=== PATIENT | male | born 2000 | race Caucasian/White ===

== ENCOUNTER 2021-07-18 20:50 | Emergency (ER) | payer MEDICAID, SELFPAY ==
[2021-07-18 20:52] VITALS: BP 149/90; PULSE 103; RESP 18; TEMP 36.6; O2SAT 99; BMI 29.2
--- NOTE | 2021-07-18 21:20 | EX.ED.SAOD ---
HPI History of Present Illness Chief Complaint: Substance Abuse Informant: patient Onset/Context/Timing Onset: Month(s) Context: Gradual Onset Timing: Continuous Current Severity: Mild Maximum Severity: Mild Associated Symptoms Associated Symptoms: Positive for palpatations Narrative Narrative: 21-year-old male who has a history of alcohol abuse. Has been drinking heavily for the last 3 months. He had a grandfather that had alcoholism. Denies drugs. States that he drinks about 2 bottles of wine a day. Yesterday he drank only 1 bottle trying to stop but now he is having withdrawal symptoms. And is drank nothing today. He adamantly does not want to be admitted to the hospital. Prior similar symptoms: No Recent Illness/Hospitalization: No PFSH PFSH Home Medications chlordiazepoxide HCl 50 mg PO Q6H PRN #20 cap 07/18/21 [Rx Last Taken Unknown] Allergy/AdvReac Type Severity Reaction Status Date / Time No Known Allergies Allergy Verified 07/18/21 20:54 Social History Smoking Status: Never smoker ROS ROS ED ROS Narrative Withdrawal symptoms such as tachycardia. Review of Systems ROS Unobtainable: Denies due to encephalopathy Constitutional Constitutional ED: Denies fever(s) Eyes Eyes: Denies change in vision ENT ENT ED: Denies ear pain Cardiovascular Cardiovascular: Denies chest pain Respiratory/Chest Respiratory/Chest: Denies cough or dyspnea Gastrointestinal Gastrointestinal: Denies abdominal pain, diarrhea, nausea or vomiting Genitourinary Genitourinary ED: Denies dysuria Musculoskeletal Musculoskeletal: Denies myalgias Integumentary Denies rash Neurologic Neurologic: Denies headache(s) Psychiatric Psychiatric: Denies depression Endocrine Endocrinology: Denies polyuria Hematologic/Lymphatic Hematologic/Lymphatic: Denies easy bruising Allergic/Immunologic Allergic/Immunologic ED: Denies urticaria EXAM Physical Exam Narrative Exam Narrative: Well-appearing 21-year-old no acute distress. Vital signs stable he is afebrile. Blood pressure 149/90. Heart rate 103. Pulse ox 99% on room air. HEENT exam unremarkable. Moist his membranes. Neck nontender. Lungs clear to auscultation bilaterally. Heart regular rhythm rate about 100-1 03. No murmur. Abdomen soft nontender normal bowel sounds no peritoneal signs. Patient moving all 4 extremities. No edema. Neurologically is awake and alert with no focal motor deficits. Const Vital Signs: 07/18/21 20:52 Temperature 97.8 F Temperature Source Temporal Pulse Rate 103 H Respiratory Rate 18 Blood Pressure 149/90 H Blood Pressure Mean 109 Pulse Ox 99 Oxygen Delivery Method Room Air Positive well nourished and well developed; Negative for obese, cachectic, contractures or unkempt General Appearance ED: well developed and NAD; Negative for unkempt, cachectic, contractures or pallor Nutritional Appearance: Negative for cachectic or obese HEENT Reports moist mucous membranes Negative for atraumatic or trauma Eyes PERRL and EOMs intact bilaterally Neck no lymphadenopathy, supple and no JVD Lymph Lymphatic: no lymphadenopathy noted Chest Wall inspection of chest normal and palpation of chest normal Resp normal respiratory effort and clear to auscultation bilaterally Auscultation: Negative for rales, rhonchi or wheezes Cardio regular rhythm, S1 normal heart sound, S2 normal heart sound and no murmurs; Negative for regular rate Rate: tachycardic GI soft to palpation, non-tender, non-distended and no masses Inspection: Negative for abdominal distention Palpation: Negative for tender, guarding or rigid Back/Spine no CVA tenderness General Back: Negative for CVA tenderness Cervical Spine: Negative for cervical spine tenderness Thoracic Spine / Upper Back: Negative for thoracic spinal tenderness Extremity General Extremety ED: Negative for edema or tenderness General Extremity: Negative for edema Neuro oriented x3 and CN's II-XII intact bilaterally Sensorium / Orientation: alert, oriented to person, oriented to place and oriented to time; Negative for confused, lethargic or stuporous Motor Exam: strength 5/5 throughout Psych mental status grossly normal and thought process normal Appearance: Negative for unkempt Attitude: No belligerent, No agitated, No aggressive and No hostile Mood & Affect: Negative for depressed or tearful Skin General Skin Exam: Negative for jaundice or pallor Lesions: no lesions Rashes: no rashes MDM MDM MDM Narrative Medical decision making narrative: 21-year-old male requesting help with his withdrawal symptoms but does not want inpatient detox. Patient be discharged home with Librium. Our secondary social studies teacher will discuss with him and help him get set up with [facility] for outpatient detox of alcohol. He knows to return if worse. Discharge Plan Triage Chief Complaint: Substance Abuse ED Provider: Blaine Acosta Dx/Rx/DC Orders Clinical Impression: Alcohol abuse Instructions: ED Alcohol Abuse Prescriptions: New chlordiazepoxide HCl 25 mg capsule 50 mg PO Q6H PRN (Reason: alcohol withdrawal) Qty: 20 RF: 0 Primary Care Provider: NOT,DEFINED Referrals: NOT,DEFINED [Primary Care Provider] - [facility] [STAFF PHYSICIAN] - 1 Day Activity Restrictions/Additional Instructions: Plenty of fluids and rest. Follow-up with [facility] tomorrow morning. Return to the emergency department if you are feeling worse. You can get very severe withdrawal symptoms with detoxing off of alcohol. We can even have seizures. You need to be very careful trying to do this at home. If you feel worse return for inpatient treatment. Disposition Disposition: Home, Self Care
--- NOTE | 2021-07-18 22:49 | CM.ED ---
VILMA Note VILMA met with patient and his girlfriend. [facility] and the treatment navigator. Patient said that he had to do outpatient because of his job and needing money to pay rent next week. SW discussed the RAMP program and patient said that he did not think he could go a long period of time without seeing his significant other. Patient said that he has researched on line the effects alcohol detox has on the body. SW encouraged patient to consider the RAMP program. VILMA provided resources to patient. VILMA remains available. Plan: [facility] resources provided Marie GREGG
== END 2021-07-18 23:12 | disposition home or self-care (01) ==
LOC: ED 21:38
PROVIDERS: Emergency Provider Emergency Medicine; Visit Provider Emergency Medicine
DX: F10.10 Alcohol abuse, uncomplicated (principal)
CPT/HCPCS: 99281; 99282

== ENCOUNTER 2021-08-03 15:44 | Emergency (ER) | payer OTHER, MEDICAID, SELFPAY ==
[2021-08-03 15:45] VITALS: BP 144/91; PULSE 87; RESP 18; TEMP 36.7; O2SAT 100; BMI 28.5
--- NOTE | 2021-08-03 16:01 | EDS_ITS ---
HPI History of Present Illness Chief Complaint: Laceration Narrative Narrative: 21-year-old male presenting with laceration to the right lateral eyebrow. Patient states he hit his head on a truck while at work. This was on the bumper. He states it was a clean surface area. He believes his tetanus is up-to-date. He denies he denies headache. He denies LOC. Denies dizziness or lightheadedness. He states that mildly hurts where his laceration is. He states since this happened at work he was sent in for evaluation. PFSH PFS Medical History no medical history Home Medications NK 08/03/21 [History Last Taken Unknown] Allergy/AdvReac Type Severity Reaction Status Date / Time No Known Allergies Allergy Verified 08/03/21 16:18 Surgical History no surgical history Social History Smoking Status: Never smoker ROS ROS ED Constitutional Constitutional ED: Denies chills or fever(s) Eyes Eyes: Denies blurry vision or change in vision ENT ENT ED: Denies rhinorrhea or sore throat Cardiovascular Cardiovascular: Denies chest pain or palpitations Respiratory/Chest Respiratory/Chest: Denies cough or dyspnea Gastrointestinal Gastrointestinal: Denies abdominal pain, nausea or vomiting Genitourinary Genitourinary ED: Denies dysuria or hematuria Musculoskeletal Musculoskeletal: Denies arthralgias, myalgias or neck pain Integumentary Reports other EXAM Physical Exam Const Vital Signs: 08/03/21 15:45 08/03/21 18:00 Temperature 98.0 F Temperature Source Temporal Pulse Rate 87 82 Respiratory Rate 18 17 Blood Pressure 144/91 H Blood Pressure Mean 108 Pulse Ox 100 100 Oxygen Delivery Method Room Air Positive well nourished General Appearance ED: NAD HENICHOLE HENICHOLE Narrative: 1 to 5 cm laceration right supraorbital ridge. No active bleeding. Minimally tender to palpation peer Eyes PERRL and EOMs intact bilaterally Neck full ROM General: Negative for tenderness Resp normal respiratory effort and clear to auscultation bilaterally Cardio regular rhythm Rate: regular rate Neuro oriented x3, CN's II-XII intact bilaterally, moves all extremities, no focal motor deficits and no sensory deficits noted Sensorium / Orientation: alert Psych mental status grossly normal Skin Skin Narrative: As described above PROC Procedures Lacerations Facial lacerations: Length: 0.59 in Depth: Skin Shape: Linear Prep: Sterile Conditions and Chlorhexadine Laceration repair: Irrigated and Lidocaine with epi Irrigated (ml): 250 Number of Sutures/El: 2 Suture Information: Ethilon and 6-0 MDM MDM MDM Narrative Medical decision making narrative: Patient's wound was cleaned and irrigated. Two 6-0 Ethilon sutures were used to approximate the wound margins. Please see procedure note. Patient tolerated this well. He is given instructions on wound care and monitor for signs of infection. He is counseled to follow-up in 5 to 7 days for suture removal. Patient will follow up with the [facility] for suture removal. Impression: 1. 1.5 cm facial laceration Lab Data Labs: Laboratory Results - last 24 hr 08/03/21 16:55 POC Glucose 74 Discharge Plan Triage Chief Complaint: Laceration ED Provider: Fransico Lentz Dx/Rx/DC Orders Instructions: ED Laceration Scalp Stitches or [place] Prescriptions: No Action NK RF: 0 Primary Care Provider: Care Physician,No Primary Referrals: Care Physician,No Primary [Primary Care Provider] - [facility] [NON-STAFF] - (5 days) Disposition Disposition: Home, Self Care Discharge Date/Time: 08/03/21 18:01
[2021-08-03 17:06] LABS: Bedside Glucose 74 mg/dL (70-110)
[2021-08-03] MEDS: Lidocaine 2% /Epi 1:100 (20ml) 20 ML VIAL OPERA.SITE (17:24)
[2021-08-03 18:00] VITALS: PULSE 82; RESP 17; O2SAT 100
== END 2021-08-03 18:01 | disposition home or self-care (01) ==
PROVIDERS: Emergency Provider Student in an Organized Health Care Education/Training Program; Visit Provider Student in an Organized Health Care Education/Training Program
DX: S01.111A Laceration without foreign body of right eyelid and periocular area, initial encounter (principal); R82.998 Other abnormal findings in urine; R63.1 Polydipsia; X58.XXXA Exposure to other specified factors, initial encounter
CPT/HCPCS: 12011; 81001; 82962; 87086; 87088; 99282; 99283

== ENCOUNTER 2021-08-03 16:17 | Emergency (ER) | payer MEDICAID, SELFPAY ==
[2021-08-03 16:19] VITALS: BP 144/91; PULSE 87; RESP 18; TEMP 36.7; O2SAT 100; BMI 28.5
--- NOTE | 2021-08-03 16:20 | EDS_ITS ---
HPI History of Present Illness Chief Complaint: Complaint Narrative Narrative: 21-year-old male presenting initially for a laceration ER for Worker's Comp., but wanted to be reevaluated for dark urine which has had since he quit drinking couple weeks ago. Otherwise he feels well. He is not had nausea or vomiting. He denies abdominal pain. He has no history of STD. He is concerned for STDs. PFSH PFSH Medical History no medical history Home Medications NK 08/03/21 [History Last Taken Unknown] Allergy/AdvReac Type Severity Reaction Status Date / Time No Known Allergies Allergy Verified 08/03/21 16:18 Surgical History no surgical history Social History Smoking Status: Never smoker ROS ROS ED Constitutional Constitutional ED: Denies chills or fever(s) Eyes Eyes: Denies blurry vision or change in vision ENT ENT ED: Denies rhinorrhea or sore throat Cardiovascular Cardiovascular: Denies chest pain or palpitations Respiratory/Chest Respiratory/Chest: Denies cough or dyspnea Gastrointestinal Gastrointestinal: Denies abdominal pain or nausea Genitourinary Genitourinary ED: Denies dysuria or hematuria Musculoskeletal Musculoskeletal: Denies arthralgias, myalgias or neck pain Integumentary Reports other Details: Laceration repaired Neurologic Neurologic: Denies headache(s) or weakness Psychiatric Psychiatric: Denies anxiety or depression EXAM Physical Exam Const Vital Signs: 08/03/21 16:19 08/03/21 18:02 Temperature 98.0 F Temperature Source Temporal Pulse Rate 87 82 Respiratory Rate 18 17 Blood Pressure 144/91 H Blood Pressure Mean 108 Pulse Ox 100 100 Oxygen Delivery Method Room Air Positive well nourished General Appearance ED: NAD HEENT HEENT Narrative: 1.5 cm laceration to the right eyebrow. normocephalic Eyes PERRL and EOMs intact bilaterally Resp normal respiratory effort and clear to auscultation bilaterally Cardio regular rate and regular rhythm GI non-tender and non-distended Palpation: soft Neuro oriented x3, CN's II-XII intact bilaterally, moves all extremities, no focal motor deficits and no sensory deficits noted Sensorium / Orientation: alert Psych mental status grossly normal Skin Skin Narrative: As document above MDM MDM MDM Narrative Medical decision making narrative: Patient requests a urinalysis due to urinary symptoms which she describes mostly as foul-smelling. Urinalysis is negative for infection but does show 5 ketones. Patient states that he is excessively thirsty lately and I did check a bedside blood sugar which was in the 70s. Given his negative work-up I feel he can be discharged home. He is counseled to follow-up with his PCP for further care. He is given return precautions. Impression: 1. Foul-smelling urine 2. Polydipsia Lab Data Labs: Laboratory Results - last 24 hr 08/03/21 16:43 Urine Color Yellow Urine Clarity Clear Urine pH 6.5 Ur Specific [place] 1.010 Urine Protein Negative Urine Glucose (UA) Normal Urine Ketones 5 H Urine Occult Blood Negative Urine Nitrite Negative Urine Bilirubin Negative Urine Urobilinogen Normal Ur Leukocyte Esterase Negative Urine RBC 0-5 SEEN Urine WBC 0 SEEN Ur Squamous Epith Cells 0-5 SEEN Urine Bacteria 0 SEEN Urine Mucus 0 SEEN Discharge Plan Triage Chief Complaint: Complaint ED Provider: Fransico Lentz Dx/Rx/DC Orders Prescriptions: No Action NK RF: 0 Primary Care Provider: Care Physician,No Primary Referrals: Care Physician,No Primary [Primary Care Provider] - Disposition Disposition: Home, Self Care Discharge Date/Time: 08/03/21 18:03
[2021-08-03 16:47] LABS: Bacteria 0 SEEN /hpf (None Seen); Mucous, Urine 0 SEEN /hpf (<or=2+); White Blood Cells 0 SEEN /hpf (0-5)
[2021-08-03 16:51] LABS: Color, Urine Yellow (Yellow); Glucose, Dipstick Normal (Normal); Ketone-Dipstick 5 mg/dl (Negative); Leukocyte Esterase-Dipstick Negative /ul (Negative); Nitrite-Dipstick Negative (Negative); Occult Blood-Urine Negative /ul (Negative); Protein-Dipstick Negative (Negative); Urine Bilirubin Dipstick Negative (Negative); Urine Clarity Clear (Clear); Urine Urobilinogen Normal (Normal); Urine pH 6.5 (5.0 - 8.0)
[2021-08-03 17:03] LABS: Red Blood Cells-Urine 0-5 SEEN /hpf (0-5); Squamous Epithelial Cells - UA 0-5 SEEN /hpf (0-5)
[2021-08-03 18:02] VITALS: PULSE 82; RESP 17; O2SAT 100
== END 2021-08-03 18:03 | disposition home or self-care (01) ==
LOC: ED 16:32
PROVIDERS: Emergency Provider Student in an Organized Health Care Education/Training Program; Visit Provider Student in an Organized Health Care Education/Training Program
DX: R82.998 Other abnormal findings in urine (principal); R63.1 Polydipsia
CPT/HCPCS: 99282; 81001; 87088; 87086

== ENCOUNTER 2021-08-04 19:02 | Emergency (ER) | payer MEDICAID, SELFPAY ==
[2021-08-04 19:03] VITALS: BP 132/76; PULSE 77; RESP 16; TEMP 36.1; O2SAT 99; BMI 31.1
--- NOTE | 2021-08-04 19:19 | CT_ITS ---
STUDY: CT BRAIN WITHOUT CONTRAST REASON FOR EXAM: Male, 21 years old. HeadacheHEAD INJURY YESTERDAY, HIT HEAD ON METAL PLATE, TODAY DIZZINESS, NAUSEA, VISION CHANGES, STITCHES ABOVE RIGHT EYEBROW RADIATION DOSAGE (If Supplied By Facility): CTDIvol = ( 44.99 ) mGy, DLP = ( 812.98 ) mGycm TECHNIQUE: Transaxial CT imaging of the brain was performed without administration of intravenous contrast material. Individualized dose optimization techniques were used for this CT. COMPARISON: No relevant priors. FINDINGS: Brain parenchyma is without focal lesions, mass effect, acute intracranial hemorrhage, extra parenchymal fluid collections, hydrocephalus or herniation. The skull is intact. CT/Brain/Head without Contrast IMPRESSION: 1. Normal CT brain. Electronically Signed: Dakotah Ames MD at 19:55 EST ,
--- NOTE | 2021-08-04 19:19 | EKG12_ITS ---
Test Reason : HEAD INJ Blood Pressure : / mmHG Vent. Rate : 071 BPM Atrial Rate : 071 BPM P-R Int : 148 ms QRS Dur : 088 ms QT Int : 362 ms P-R-T Axes : 047 035 021 degrees QTc Int : 393 ms Normal sinus rhythm Normal ECG Confirmed by SUMEET ROSA MD ([id number]), order editor ROSA M PHILIPPE ([id number]) on 08/05/2021 12:26:07 PM Referred By: BERHANE Confirmed By:SUMEET ROSA MD
[2021-08-04] MEDS: Ondansetron 4 MG/2 ML Vial IV (19:32)
--- NOTE | 2021-08-04 19:40 | RAD_ITS ---
STUDY: X-RAY CHEST REASON FOR EXAM: Male, 21 years old. Dizziness TECHNIQUE: Frontal view COMPARISON: None. FINDINGS: The lungs are clear and expanded. There is no demonstrated pleural abnormality. Normal size heart. Normal mediastinum and ascencion. Normal visualized pulmonary arteries. Normal visualized aortic arch and descending thoracic aorta. Normal visualized thoracic spine. Normal visualized ribs, clavicles, and shoulders. There is no demonstrated abnormality of the visualized soft tissue structures of the upper abdomen. RAD/Chest 1 View (Portable) IMPRESSION: Normal x-ray examination of the chest. Electronically Signed: Octaviano Gutiérrez DO at 21:26 EST Reading Location ID and State: [facility] / [place] Tel [phone], Service support ,
[2021-08-04 19:50] LABS: Absolute Lymphocyte Count 2.15 X10^3/uL (0.83-4.51); Absolute Neutrophil Count 3.3 X10^3/uL (2.0-7.7); Basophil# 0.07 X10^3/uL; Basophil% 1.1 % (0-1); Eosinophils% 3.2 % (0-5); Hematocrit 47.1 % (40-54); Hemoglobin 16.7 g/dL (13.0-16.5); Lymphocyte # 2.15 X10^3/ul (0.83-4.51); Lymphocyte % 34.8 % (19-41); Mean Corp Hgb Conc 35.5 g/dL (32-36); Mean Corpuscular Hgb 31.2 pg (27.0-32.0); Mean Platelet Vol. 9.1 fl (6.2-12.0); Monocyte# 0.49 X10^3/uL; Monocyte% 7.9 % (0-10); NRBC Flagged by Analyzer 0 % (0-5); Neutrophil # 3.26 X10^3/uL (2.7-7.7); Neutrophil % 52.8 % (47-70); Platelet Count 365 K/mm3 (150-450); RBC Distribution Width CV 11.4 % (11.6-14.6); RBC Distribution Width SD 36.5 fl (35.1-43.9); Red Blood Count 5.35 M/mm3 (4.6-6.2); White Blood Count 6.2 K/mm3 (4.4-11.0)
--- NOTE | 2021-08-04 19:55 | EDS_ITS ---
HPI History of Present Illness Chief Complaint: Head Injury Narrative Narrative: 21-year-old male presenting for mild headache and nausea. I personally saw him yesterday for head injury in which he had hit his head on the bumper of a truck. He denies LOC. He did not have any symptoms of concussion at that time. His laceration was sutured and he was discharged home for follow- up with the [facility]. Patient did have a request to be rechecked in for a complaint of urinary odor and a urinalysis was checked and this was negative. It did show mild ketones. Patient also states that he was excessively thirsty and I did check a blood sugar which was in the 70s. Patient again was d ischarged home. He presents today stating that he had been feeling like he has been lightheaded prior to his head injury and is worse now. He states that he has some visual blurring which is intermittent. He states he feels lightheaded and nauseous now which was not present yesterday. PFSH PFSH Home Medications NK 08/03/21 [History Last Taken Unknown] Allergy/AdvReac Type Severity Reaction Status Date / Time No Known Allergies Allergy Verified 08/04/21 19:03 Social History Smoking Status: Never smoker ROS ROS ED Constitutional Constitutional ED: Denies chills, fever(s) or sweats Eyes Eyes: Reports blurry vision ENT ENT ED: Denies ear pain or rhinorrhea Cardiovascular Cardiovascular: Denies chest pain or palpitations Respiratory/Chest Respiratory/Chest: Denies cough, dyspnea or sputum Gastrointestinal Gastrointestinal: Reports nausea; Denies abdominal pain, diarrhea or vomiting Genitourinary Genitourinary ED: Denies dysuria or hematuria Musculoskeletal Musculoskeletal: Denies arthralgias, myalgias or neck pain Integumentary Denies Abrasions or rash Neurologic Neurologic: Reports headache(s); Denies paresthesias or weakness EXAM Physical Exam Const Vital Signs: 08/04/21 19:03 08/04/21 20:38 08/04/21 21:02 Temperature 97.0 F L Temperature Source Temporal Pulse Rate 77 66 Respiratory Rate 16 15 Respiratory Effort Normal Non-Labored Respiratory Pattern Normal Blood Pressure 132/76 H 130/74 H Blood Pressure Mean 94 92 Pulse Ox 99 99 Oxygen Delivery Method Room Air Room Air 08/04/21 21:04 Temperature Temperature Source Pulse Rate 66 Respiratory Rate 15 Respiratory Effort Respiratory Pattern Blood Pressure 130/74 H Blood Pressure Mean Pulse Ox 99 Oxygen Delivery Method Positive well nourished General Appearance ED: NAD; Negative for pallor HEENT Reports normocephalic and moist mucous membranes Eyes PERRL and EOMs intact bilaterally General Eye ED: Negative for pale conjunctiva or scleral icterus Neck no lymphadenopathy and supple Resp normal respiratory effort and clear to auscultation bilaterally Cardio regular rate and regular rhythm GI non-tender and non-distended Palpation: soft Neuro oriented x3, CN's II-XII intact bilaterally and no sensory deficits noted Sensorium / Orientation: awake and alert Motor Exam: strength 5/5 throughout Psych mental status grossly normal Skin General Skin Exam: Negative for jaundice or pallor Lesions: no lesions Rashes: no rashes MDM MDM MDM Narrative Medical decision making narrative: Patient reporting lightheadedness and nausea after hitting his head yesterday. He did not have the symptoms when I examined him yesterday. He states that he has had similar symptoms over the past couple of weeks and are not necessarily all related to the head injury. He did state that he stopped drinking 2 weeks ago. For this reason I did obtain blood work and an EKG. EKG on my interpretation shows sinus rhythm ventricular to 71 bpm without sign of ischemic change or dysrhythmia. CT of the brain is negative for acute intracranial process. CBC and CMP are unremarkable. High-sensitivity troponin is less than 3. Chest x-ray on my interpretation is no acute cardiopulmonary process and radiologist agree. Patient was given Zofran and felt improved. Patient likely has mild concussion symptoms. I am not sure what his symptoms prior to his head injury were caused by. I do believe he is safe for discharge. Impression: 1. Concussion 2. Nausea 3. Lightheaded Lab Data Labs: Laboratory Results - last 24 hr 08/04/21 08/04/21 19:35 19:35 WBC 6.2 RBC 5.35 Hgb 16.7 H Hct 47.1 MCV 88.0 MCH 31.2 MCHC 35.5 RDW Std Deviation 36.5 RDW Coeff of Unique 11.4 L Plt Count 365 MPV 9.1 Immature Gran % (Auto) 0.200 Neut % (Auto) 52.8 Lymph % (Auto) 34.8 [place] % (Auto) 7.9 Eos % (Auto) 3.2 Baso % (Auto) 1.1 H Absolute Neuts (auto) 3.3 Absolute Lymphs (auto) 2.15 Nucleated RBC % 0 Sodium 140 Potassium 4.1 Chloride 108 H Carbon Dioxide 28.0 Anion Gap 4 L BUN 11 Creatinine 1.10 Estim Creat Clear Calc 114.09 Est GFR (MDRD) Af Amer 110 Est GFR (MDRD) Non-Af 91 BUN/Creatinine Ratio 10.0 Glucose 130 H Calcium 8.2 L Total Bilirubin 0.30 AST 29 ALT 57 Alkaline Phosphatase 60 Troponin I High Sens < 3 L Total Protein 6.7 Albumin 3.6 Globulin 3.1 Albumin/Globulin Ratio 1.2 Radiography Diagnostic Testing: Clinical Impression(s) from Imaging Studies Brain CT 08/04/21 19:19 IMPRESSION: 1. Normal CT brain. Electronically Signed: Dakotah Ames MD at 19:55 EST , Chest X-Ray 08/04/21 19:40 IMPRESSION: Normal x-ray examination of the chest. Electronically Signed: Octaviano Gutiérrez DO at 21:26 EST , Discharge Plan Triage Chief Complaint: Head Injury ED Provider: Fransico Lnetz Dx/Rx/DC Orders Instructions: ED Concussion Prescriptions: No Action NK RF: 0 Primary Care Provider: Care Physician,No Primary Referrals: Angelika Watkins DO [STAFF PHYSICIAN] - 3-5 Days Care Physician,No Primary [Primary Care Provider] - Disposition Disposition: Home, Self Care Discharge Date/Time: 08/04/21 21:05
[2021-08-04 20:09] LABS: ALB/GLOB Ratio 1.2 RATIO (0.9-2.4); AST(SGOT) 29 U/L (15-37); Alanine Aminotransfer ALT/SGPT 57 U/L (16-61); Albumin, Serum 3.6 g/dL (3.2-5.0); Alkaline Phosphatase 60 U/L (45-117); Anion Gap 4 (5-15); BUN 11 mg/dL (7-18); Calcium,Total 8.2 mg/dL (8.5-10.1); Chloride 108 mmol/L (98-107); EST Glomerular Filtration Rate 91 mL/min (>60); Est Glom Filt Rate - Afr Amer 110 mL/min (>60); Estimated Creatinine Clearance 114.09 ml/min; Globulin 3.1 g/dL (2.2-4.2); Glucose 130 mg/dL (74-106); Potassium 4.1 mmol/L (3.5-5.1); Protein, Total 6.7 g/dL (6.4-8.2); Sodium Level 140 mmol/L (136-145); Troponin-I HS < 3 pg/mL (3.0-78.0)
[2021-08-04 21:02] VITALS: BP 130/74; PULSE 66; RESP 15; O2SAT 99
[2021-08-04 21:04] VITALS: BP 130/74; PULSE 66; RESP 15; O2SAT 99
== END 2021-08-04 21:05 | disposition home or self-care (01) ==
PROVIDERS: Emergency Provider Student in an Organized Health Care Education/Training Program; Visit Provider Student in an Organized Health Care Education/Training Program
DX: S06.0X0A Concussion without loss of consciousness, initial encounter (principal); R11.0 Nausea; R42 Dizziness and giddiness; X58.XXXA Exposure to other specified factors, initial encounter
CPT/HCPCS: 70450; 71045; 80053; 84484; 85025; 93005; 96374; 99283; A4216; J2405

== ENCOUNTER 2021-12-22 20:26 | Emergency (ER) | payer MEDICAID, SELFPAY ==
[2021-12-22 20:27] VITALS: BP 132/74; PULSE 80; RESP 16; TEMP 36.6; O2SAT 99; BMI 28.5
[2021-12-22 20:46] LABS: Bacteria 0 SEEN /hpf (None Seen); Mucous, Urine 0 SEEN /hpf (<or=2+); Red Blood Cells-Urine 0 SEEN /hpf (0-5); Squamous Epithelial Cells - UA 0 SEEN /hpf (0-5); White Blood Cells 0 SEEN /hpf (0-5)
[2021-12-22 21:11] LABS: Color, Urine Yellow (Yellow); Glucose, Dipstick Normal (Normal); Ketone-Dipstick Negative (Negative); Leukocyte Esterase-Dipstick Negative /ul (Negative); Nitrite-Dipstick Negative (Negative); Occult Blood-Urine Negative /ul (Negative); Protein-Dipstick Negative (Negative); Urine Bilirubin Dipstick Negative (Negative); Urine Clarity Clear (Clear); Urine Urobilinogen Normal (Normal)
--- NOTE | 2021-12-22 21:23 | ED.RN ---
PT STATES HE DOES NOT WANT TO WAIT ANY LONGER TO BE SEEN, AMBULATES OUT OF DEPT
== END 2021-12-22 21:24 | disposition left against medical advice (07) ==
LOC: ED 21:24
PROVIDERS: PCP Family Medicine
DX: Z53.21 Procedure and treatment not carried out due to patient leaving prior to being seen by health care provider (principal)
CPT/HCPCS: 81001

== ENCOUNTER 2022-06-05 20:50 | Emergency (ER) | payer MEDICAID, SELFPAY ==
[2022-06-05 20:51] VITALS: BP 150/75; PULSE 106; RESP 18; TEMP 36.8; O2SAT 99; BMI 29.9
--- NOTE | 2022-06-05 21:20 | EDS_ITS ---
HPI History of Present Illness Chief Complaint: General Illness Narrative Narrative: 30-year-old male past medical history of lupus presents with saying I think I have the flu. He states his symptoms began yesterday where he had body aches. He awoke this morning with a temperature elevated 100.7 ?F. He developed a cough that is occasionally productive of sputum with mild shortness of breath. He denies any nausea or vomiting. No diarrhea. He has upper respiratory infection type symptoms with mild nasal drainage with congestion alternating. He has been taking Robitussin. [facility] Medical History Laceration without foreign body of right eyelid and periocular area, initial encounter Home Medications NK 08/03/21 [History Last Taken Unknown] Allergy/AdvReac Type Severity Reaction Status Date / Time No Known Allergies Allergy Verified 06/05/22 20:53 Social History Smoking Status: Never smoker ROS ROS ED ROS Narrative Constitutional: +100.7 ?F fever, no chills. HEENT: No sore throat. No neck pain. No loss of vision. Positive nasal congestion and rhinorrhea. Cardiovascular: No chest pain. No palpitations. No pedal edema. Respiratory: Positive cough, mild shortness of breath. Abdominal: No abdominal pain. No nausea. No vomiting. Genitourinary: No dysuria. No hematuria. Musculoskeletal: Multiple myalgias. No arthralgias. Neurologic: No headaches. No dizziness. No lightheadedness. Skin: No rash. No change in color. Psychiatric: No depression. No anxiety. EXAM Physical Exam Narrative Exam Narrative: Afebrile. Vital signs noted. Nontoxic-appearing. HEENT: Normocephalic. Atraumatic. PERRL, EOMI. Neck soft and supple. No point tenderness or step off. Mild nasal congestion noted on exam. Cardiovascular: Regular rate and rhythm. No murmurs, rubs, or gallops appreciated. Respiratory: No tachypnea. Lungs clear to auscultation bilaterally. Gastrointestinal: Abdomen soft, nontender, with normoactive bowel sounds. No rebound or guarding. Neurological: Awake. Alert. Nonfocal, nonlateralizing. Skin: No rash. Normal color. No pallor. Musculoskeletal: No pedal edema. Full range of motion extremities. Const Vital Signs: 06/05/22 20:51 06/05/22 21:00 Temperature 98.2 F Temperature Source Temporal Pulse Rate 106 H Respiratory Rate 18 Respiratory Effort Normal Respiratory Pattern Normal Blood Pressure 150/75 H Blood Pressure Mean 100 Pulse Ox 99 Oxygen Delivery Method Room Air MDM MDM MDM Narrative Medical decision making narrative: Pulse ox is 99% on room air without evidence of hypoxia. I do not feel chest x- ray is indicated. COVID and influenza swab was obtained. Influenza A swab is positive. As he is within 48 hours of his symptom onset I offered him Tamiflu but he declined. He was given a note to be off work for the next 3 days. Treatment be symptomatic with plenty of oral fluids and [id number] medications as needed. I feel he can be discharged safely home with follow-up. Return instructions to the emergency department were reviewed. Disposition is discharged home in stable condition. Discharge Plan Triage Chief Complaint: General Illness ED Provider: Milad Albert Dx/Rx/DC Orders Clinical Impression: Influenza A, Viral syndrome Instructions: ED Influenza (Adult) Prescriptions: No Action NK Stand Alone Forms: ED Work / School Excuse Primary Care Provider: Armando Nunez Referrals: Armando Nunez DO [Primary Care Provider] - 1 Week if not improving Disposition Disposition: Home, Self Care
== END 2022-06-05 22:20 | disposition home or self-care (01) ==
PROVIDERS: Emergency Provider Emergency Medicine; PCP Family Medicine; Visit Provider Emergency Medicine
DX: J10.1 Influenza due to other identified influenza virus with other respiratory manifestations (principal); B34.9 Viral infection, unspecified
CPT/HCPCS: 87428; 99282

== ENCOUNTER → 2024-07-04 | Outpatient (CLI) | payer SELFPAY ==
[2024-07-07 10:08] LABS: Cotinine Screen Blood <1.0 ng/mL (.); Nicotine Blood <1.0 ng/mL (.)
== END | disposition home or self-care (01) ==
LOC: LABSPEC 12:24
PROVIDERS: PCP Family Medicine; Referring Provider Registered Nurse; Visit Provider Registered Nurse
DX: Z00.00 Encounter for general adult medical examination without abnormal findings (principal)
CPT/HCPCS: 80323; G0480